=== PATIENT | female | born 1990 | race Caucasian/White ===

== ENCOUNTER 2018-10-19 00:11 | Inpatient (IN) | payer SELFPAY ==
[~2018-10-19] VITALS: Ht 170.2 cm; Wt 89.1 kg
[2018-10-19 00:19] VITALS: Ht 170.2 cm; Wt 89.1 kg
--- NOTE | 2018-10-19 00:54 | NUR ---
PT [place] [facility] ON 515 FOR SI. PT STS THAT HE/SHE TRIED TO COMMIT SUICIDE BUT DID NOT FOLLOW THROUGH. DURING MY ASSESSMENT PT IS CONTINUALLY CHANGING HER TONE OF VOICE FROM A FEMENINE VOICE TO A LOW DEEP VOICE. PT STS " JAYASHREE IS A COWARD BITCH WHO WONT FOLLOW THROUGH, THANK GOD I AM FROM [facility] TO MAKE SURE IT HAPPENS WITH A GLASS BOTTLE". DURING MY ASSESSMENT PT STS " ITS NO LONGER JAYASHREE THIS IS "[place]".. IM A DESCENDENT FROM [facility]". PT CONTINUES TO RAMBLE ABOUT HISTORY OF MULTIPLE PERSONALITIES AND HOW SHE IS HOMELESS AND WALKS EVERYWHERE. PT REPORTS " JAYASHREE HAS HAD ME AROUND FOR YEARS AND DOES WHATEVER SHE CAN TO GET WHAT SHE NEEDS, THANK GOODNESS SHE USES PROTECTION". PT IS A/O X4. PT RESPS ARE E/U. PT IS ANSWERING QUESTIONS IN 5-6 WORDED SENTENCES. PT IS ABLE TO AMBULATE WITH STEADY GAIT. PT REPORTS INJECTING METH 2-3 DAYS AGO. PT IS LAYING IN ED [place] IN LOWEST SETTING. PTS BELONGINGS ARE PLACED IN RADIO ROOM. SAFETY PRECAUTIONS ARE IN PLACE. PT IS IN CLEAR SIGHT OF NURSES STATION.
--- NOTE | 2018-10-19 01:02 | NUR ---
PTS LEFT RING FINGER HAS A LACERATION THAT IS NOTED WITH STITCHES THAT SEEM TO HAVE BEEN RIPPED OR CUT OPEN. NO BLEEDING NOTED. S/S OF INFECTION NOTED WITH SWELLING AND YELLOW DRAINAGE FROM AREA
--- NOTE | 2018-10-19 01:42 | NUR ---
PT REFUSING BLOOD DRAWS, VERBALIZED FOR IMPORTANCE TO MONITOR BLOOD LEVELS, PATIENT CONTINUES TO REFUSE
--- NOTE | 2018-10-19 02:25 | NUR ---
PT RESTING WITH EYES CLOSED, RESPIRATIONS EVEN AND UNLABORED, NO S/S OF DISTRESS NOTED. SAFETY PRECAUTIONS IN PLACE
--- NOTE | 2018-10-19 03:23 | NUR ---
PROVIDED PATIENT WITH MILK AND SANDWICH, DENIES ALLERGIES. RESTING WITH EYES CLOSED, RESPONDS TO VERBAL STIMULI, RESPIRATIONS EVEN AND UNLABORED. SAFETY PRECAUTIONS IN PLACE.
--- NOTE | 2018-10-19 04:58 | NUR ---
ATTEMPTED TO GET PATIENT TO COMPLY WITH LAB DRAWS, PATIENT CONTINUES TO REFUSE, WHEN ASKED IF SHE CAN GIVE URINE AT THIS TIME, PATIENT STATES "I'LL THINK ABOUT IT LATER." VERBALIZED FOR IMPORTANCE TO HAVE BLOOD DRAWN ONCE AGAIN AND PATIENT THEN REPLIES "I SAID NO! LET'S KEEP IT THAT WAY." WILL CONTINUE TO MONITOR
--- NOTE | 2018-10-19 05:31 | NUR ---
PT WOKE EASILY TO TACTILE AND VERBAL STIMULI. ASKED PT IF SHE WOULD ALLOW US TO CHECK HER HEART WITH EKG, PT COMPLIED. PT STATED "I JUST DON'T WANT ANY NEEDLES. I DON'T WANT ANYTHING PUT INSIDE ME.I DON'T DO NEEDLES". INFORMED PT THAT WE WILL NOT BE INJECTING MEDICATION JUST DRAWING BLOOD. PT REPLIED "I DON'T DO NEEDLES." I GAVE UNDERSTANDING. I ALOS INFORMED PT THAT WHEN SHE IS READY TO URINATE TO LET STAFF KNOW SO THAT WE CAN OBTAIN URINE SPECIMEN. PT BECAME MILDLY AGITATED STATING "I ALREADY TOLD YOU. NO BODY'S LETTING ME FINISH MY THOUGHTS. I CAN'T JUST GO JUST BECAUSE YOU SAY TO GO". INFORMED PT THAT I DID NOT REQUEST FOR PT TO PROVIDE URINE IMMEDIATELY, BUT WHEN SHE IS READY. PT GAVE UNDERSTANDING AND ALLOWED JANETT MARQUES AND MYSELF TO COMPLETE EKG. PT WAS THEN PROVIDED WITH WARM BLANKET AND PT RETURNED TO SLEEP.
--- NOTE | 2018-10-19 06:16 | NUR ---
PT ALLOWED BLOOD DRAW AT THIS TIME. PT THEN PROCEEDED TO CURSE OUT STAFF AND MAKE THREATENING COMMENTS. WILL CONTINUE TO MONITOR.
--- NOTE | 2018-10-19 06:24 | NUR ---
PATIENT CONTINUES TO CURSE AT STAFF STATING "FUCK OFF. IS THAT WHAT YOU DO FOR A LIVING? SUCK BALLS? GO KILL YOURSELF. EVERYONE DIES ONE DAY. FUCKING HATE ALL OF YOU." PATIENT THEN PROCEEDED TO FLIP OFF EVERYONE.
[2018-10-19 06:27] LABS: BASOPHIL % 0.6 % (0-2); PLATELET COUNT 315 x10^3mcL (130-400); RED CELL DISTRIBUTION WIDTH 14.3 % (11.5-14.5)
[2018-10-19 06:41] LABS: CALCIUM 8.7 mg/dL (8.5-10.1); CARBON DIOXIDE 28.2 mmol/L (21-32); CHLORIDE SERUM 107 mmol/L (98-107); CREATININE SERUM 0.8 mg/dL (0.6-1.0); GFR1 > 60 mL/min; GLUCOSE SERUM 98 mg/dL (74-106); SODIUM SERUM 142 mmol/L (136-145)
--- NOTE | 2018-10-19 06:55 | NUR ---
MEDICATED PER EMAR. PT WAS COOPERATIVE AND STATED "I'LL TAKE IT IN THE RIGHT ARM" PRIOR TO TELLING PATIENT ABOUT MEDICATIONS. WILL CONTINUE TO MONITOR.
[2018-10-19 06:56] LABS: ALBUMIN 3.4 g/dL (3.4-5.0); ALKALINE PHOSPHATASE 97 U/L (46-116); ALT/SGPT 58 U/L (14-59); AST/SGOT 30 U/L (15-37); BILIRUBIN TOTAL 0.5 mg/dL (0.20-1.00); FREE T4 1.19 ng/dL (0.76-1.46); TOTAL PROTEIN, SERUM 7.2 g/dL (6.4-8.2)
--- NOTE | 2018-10-19 07:28 | NUR ---
REPORT GIVEN TO ROSE MARIE ALLEN, ALL QUESTIONS AND CONCERNS WERE ADDRESSED.
--- NOTE | 2018-10-19 07:42 | NUR ---
PT COOPERATING IN PROVIDING URINE SAMPLE INTO URINAL. PT IN NO DISTRESS, COMFORT MEASURES IN PLACE.
--- NOTE | 2018-10-19 08:48 | NUR ---
PT IN ED GURNEY IN POSITION OF COMFORT, SLEEPING, EASILY AROUSABLE, RESPS EVEN AND UNLABORED, NO DISTRESS NOTED. COMFORT MEASURES IN PLACE, CALL LIGHT WITHIN REACH.
[2018-10-19 09:42] LABS: AMPHETAMINE QUAL UR POSITIVE (See below)
--- NOTE | 2018-10-19 09:43 | NUR ---
OFFERED PT AM CARE PRODUCTS AND BREAKFAST, SHE STATES SHE "JUST WANTS TO SLEEP." PT IN NO DISTRESS.
--- NOTE | 2018-10-19 10:04 | NUR ---
I WAS PRESENT WHEN OLIVIA GAVE THE MEDS IM, PT A/AX4 SON AT HER SIDE TO ASSIST NEEDED. C/L IN REACH
--- NOTE | 2018-10-19 10:12 | NUR ---
PT CONTINUES SLEEPING, RESPS EVEN AND UNLABORED, VISIBLE CHEST RISE AND FALL, NO DISTRESS NOTED.
[2018-10-19 10:15] LABS: microscopic required? YES
[2018-10-19 10:16] LABS: UA SPECIFIC GRAVITY 1.025 (1.005-1.035)
[2018-10-19 10:17] LABS: urine erythrocyte NEGATIVE (NEGATIVE)
--- NOTE | 2018-10-19 11:44 | NUR ---
PT IN ED GURNEY IN POSITION OF COMFORT, CONTINUES SLEEPING, VISIBLE CHEST RISE AND FALL, RESPS EVEN AND UNLABORED, NO DISTRESS NOTED.
--- NOTE | 2018-10-19 12:41 | NUR ---
PT SLEEPING IN ED GURNEY, NO DISTRESS NOTED, RESPS EVEN AND UNLABORED.
--- NOTE | 2018-10-19 13:54 | NUR ---
PT IN ED GURNEY IN POSITION OF COMFORT, SLEEPING, AROUSABLE, RESPS EVEN AND UNLABORED, INTERMITTENT SNORING, NO DISTRESS NOTED. COMFORT MEASURES IN PLACE.
--- NOTE | 2018-10-19 15:22 | NUR ---
PT CONTINUES SLEEPING IN ED GURNEY, EASILY AROUSABLE, RESPS EVEN AND UNLABORED, NO DISTRESS NOTED.
--- NOTE | 2018-10-19 17:18 | NUR ---
PT SITTING UP IN ED GURNEY EATING SANDWICH AND DRINKING MILK, NO DISTRESS NOTED.
--- NOTE | 2018-10-19 17:24 | NUR ---
PORTABLE X-RAY IN PROGRESS AT BEDSIDE.
--- NOTE | 2018-10-19 18:01 | NUR ---
PT SITTING UP IN ED GURNEY REQUESTING URINAL, PROVIDED. PT CALM AND COOPERATIVE, NO DISTRESS.
--- NOTE | 2018-10-19 19:07 | NUR ---
RECEIVED PT REPORT FROM LALO ALLEN, I WILL NOW ASSUME PRIMARY CARE OF PT
--- NOTE | 2018-10-19 19:10 | NUR ---
REPORT GIVEN TO SHINE ALLEN.
--- NOTE | 2018-10-19 21:32 | NUR ---
PT RESTING COMFORTABLY IN ED [facility]. VISIBLE CHEST RISE AND FALL NOTED. PT RESPS ARFE E/U. NO ACD NOTED
--- NOTE | 2018-10-19 23:59 | NUR ---
PT REQUESTING FOOD IF AVAILABLE AT THIS TIME.
--- NOTE | 2018-10-20 00:10 | NUR ---
PT IS SLEEPING, RESP EVEN AND UNLABORED. WILL PROVIDE PT WITH FOOD WHEN PT WAKES.
--- NOTE | 2018-10-20 00:56 | NUR ---
PT REFUSED BLOOD WORK AND IV PLACEMENT.
--- NOTE | 2018-10-20 01:08 | NUR ---
PT REPORT GIVEN TO SERAFIN ALLEN TO ASSUME PRIMARY CARE OF PT. PT IS ADMITTE TO TELE FLOOR ROOM 253B FOR FURTHER CARE
[2018-10-20 01:24] VITALS: BP 108/54
--- NOTE | 2018-10-20 01:24 | NUR ---
PT WHEELED UP TO TELE FLOOR 253B TO BE ADMITTED FOR FURTHER CARE. PT WAS ESCORTED BY MYSELF AND SHELLI EMT. NO INCIDENCE NOTED
--- NOTE | 2018-10-20 01:29 | NUR ---
RECEIVED PT FROM ED VIA [employer]. ORIENTED PT TO ROOM AND SURROUNDINGS. PT REFUSED IV AND TELE MONITOR. PT WANT TO BE CALLED BY "[facility]". INSTRUCTED PT ON THE USE OF CALL LIGHT FOR ASSISTANCE. ENDORSED PT TO PRIMARY NURSE SERAFIN
--- NOTE | 2018-10-20 01:43 | NUR ---
PT REFUSED TELE, REFUSED IV. EXPLAINED IMPORTANCE OF HAVING TELE AND IV. PT CONTINUES TO REFUSE. REFUSED TO WEAR GOWN, REFUSED TO HAVE REPORTED WOUND TO RIGHT RING FINGER ASSESSED, REFUSED TO HAVE IT PHOTOGRAPHED, REFUSED TO HAVE IT CLEANED. RETURNED TELEBOX TO MONITOR STATION. PT STATED "I WILL NOT EAT OR DRINK ANYTHING WHILE I AM HERE, EXCEPT FOR PILL TIME. I AM HERE TO AND THIS TIME I WILL ". SIDE RAILS ARE PADDED. ON SEIZURE PRECAUTIONS. SITTER IN ROOM. REMOVED ALL TELEPHONE LINES AND IV POLE AND LINES FROM ROOM. PAGED DR. BILLINGSLEY
--- NOTE | 2018-10-20 01:49 | NUR ---
INFORMED DR. BILLINGSLEY PT REFUSING TO WEAR TELE MONITOR.
--- NOTE | 2018-10-20 01:50 | NUR ---
INFORMED DR. BILLINGSLEY PT REFUSED GOWN, IV, ASSESSMENT AND TREATMENT OF WOUND TO RIGHT RING FINGER.
--- NOTE | 2018-10-20 03:00 | NUR ---
DR. BILLINGSLEY INFORMED OF PT'S SUICIDE IDEATION
[2018-10-20 05:20] VITALS: BP 110/54
--- NOTE | 2018-10-20 05:29 | NUR ---
EYES CLOSED, BREATHING EVEN AND UNLABORED. SITTER IN ROOM.
--- NOTE | 2018-10-20 07:16 | NUR ---
EYES CLOSED, BREATHING UNLABORED ON ROOM AIR. NO IV ACCESS. SITTER IN ROOM. ENDORSED TO NURSE MALIK
--- NOTE | 2018-10-20 07:47 | NUR ---
RECEIVED SLEEPING BUT AROUSABLE. NO ACUTE DISTRESS NOTED. NO C/O PAIN OR DISCOMFORT. SITTER AT BEDSIDE. CALL LIGHT WITHIN REACH. WILL CONTINUE WITH PLAN OF CARE.
--- NOTE | 2018-10-20 09:10 | NUR ---
PT WALKING ON THE HALLWAYS PICKING UP FOOD FROM OLD PTS TRAYS AND EAT IT. STATED HE WANT TO KILL ALL THE DOCTORS AND EAT THEM. STATED HE IS NOT AFRAID OF GOING TO [facility]. DR. GARCIAS NOTIFIED.
[2018-10-20 09:50] VITALS: BP 140/77
--- NOTE | 2018-10-20 10:50 | NUR ---
AM ROUNDS DONE BY DR. LARIOS AND MEDICAL TEAM. PLAN TO WAIT FOR PSYCH EVAL. PT AGREED WITH PLAN. IN NO DISTRESS. CALM AT THIS TIME. SITTER AT BEDSIDE.
--- NOTE | 2018-10-20 13:00 | NUR ---
DR. MENDEZREES IN TO SEE PT AND CLEARED HIM FOR DC. PT AGREED WITH PLAN.
[2018-10-20 13:35] VITALS: BP 140/77
--- NOTE | 2018-10-20 13:49 | NUR ---
PATIENT SEEN BY DR. FINN, D/C 5150 HOLD. PATIENT REFUSED TO WAIT SW FOR B/C REFERRALS. HE STATED THAT HE STAYS AT [facility], ADDRESS PROVIDED BY PATIENT: [address], [place] [address]. HE REQUSTED HOSPITAL TO PROVIDE TRANSPORTAION TO TAKE HER TO THE NEAREST [employer] STATION, THAN HE WILLL GET THERE BY [employer]. RESTAURANT FRONT MANAGER CATIA INFORMED AND TAXI VOUCHER PROVIDE TO TAKE PATIENT TO [facility] [employer] STATION. SACK LUNCH PROVIDED PATIENT TO GO WITH, PATIENT IS HAPPY WITH HER APPROPRITE WEATHER CLOTHES.
--- NOTE | 2018-10-20 13:53 | NUR ---
PT DISCHARGED IN NO DISTRESS. AWAKE, ALERT AND ORIENTED. NO CHANGES IN VS. NO C/O PAIN OR DISCOMFORT. DC INSTRUCTIONS REVIEWED WITH PT. NO RX GIVEN. PT WAS PROVIDED WITH TAXI VOUCHER AND LUNCH SACK GIVEN. PERSONAL BELONGINGS TAKEN BY PT.
== END 2018-10-20 13:50 | disposition home or self-care (01) | DRG 91 ==
LOC: ED 00:11 → DU 10-20 00:26
PROVIDERS: Emergency Medicine; ADMIT Internal Medicine
DX: G92 Toxic encephalopathy (principal); N17.0 Acute kidney failure with tubular necrosis; F12.90 Cannabis use, unspecified, uncomplicated; F31.9 Bipolar disorder, unspecified; R56.9 Unspecified convulsions; F29 Unspecified psychosis not due to a substance or known physiological condition; F15.90 Other stimulant use, unspecified, uncomplicated; W26.0XXA Contact with knife, initial encounter; S61.214A Laceration without foreign body of right ring finger without damage to nail, initial encounter; Y93.89 Activity, other specified; Y92.89 Other specified places as the place of occurrence of the external cause; Y99.8 Other external cause status
CPT/HCPCS: 84439; G0480; J1630; J2060